=== PATIENT | female | born 1950 | race Asian ===

== ENCOUNTER → 2020-11-02 | Outpatient (CLI) | payer MEDICARE, OTHER ==
[~2020-11-02] MED LIST: ALLO100T30 PO; ENOX80SY5 SQ; HYDR-826 PO; LISI-170 PO; METO25TA35 PO; MISO200T15 PO; OMEP40CA42 PO; SIMV40TA20 PO; THYROXINE PO; WARF2TAB99 PO-COUM; WARFARIN PO
== END | disposition home or self-care (01) ==
LOC: CFH 12:50
PROVIDERS: ATTEND Internal Medicine Cardiovascular Disease
DX: I08.8 Other rheumatic multiple valve diseases (principal); I11.9 Hypertensive heart disease without heart failure
CPT/HCPCS: 93306